=== PATIENT | female | born 1990 | race Caucasian/White ===

== ENCOUNTER → 2023-10-20 16:46 | Outpatient (REF) | payer BC, SELFPAY ==
[2023-10-20 18:11] LABS: Erythrocyte Sed Rate 6 mm/hour (0-20)
[2023-10-23 19:32] LABS: HLA-B27 Negative (Negative)
== END ==
LOC: REG 16:46
PROVIDERS: ATTENDING PHYSICIAN Internal Medicine Rheumatology; FAMILY PHYSICIAN Internal Medicine
DX: M46.96 Unspecified inflammatory spondylopathy, lumbar region (principal)
CPT/HCPCS: 36415; 72202; 85652; 86140; 86812

== ENCOUNTER → 2024-03-01 07:46 | Outpatient (REF) | payer BC, SELFPAY | LOC: EMG 07:46 | PROVIDERS: ATTENDING PHYSICIAN Nurse Practitioner; FAMILY PHYSICIAN Internal Medicine | DX: M79.662 Pain in left lower leg (principal); G90.522 Complex regional pain syndrome I of left lower limb; R20.2 Paresthesia of skin | CPT/HCPCS: 95886; 95910 ==

== ENCOUNTER 2024-08-04 01:18 | Emergency (ER) | payer BC, SELFPAY ==
[2024-08-04 01:20] VITALS: BP 136/88
[2024-08-04 01:34] VITALS: BP 112/84
[2024-08-04 01:35] VITALS: BMI 27.9
[2024-08-04 02:00] VITALS: BP 111/76
[2024-08-04] MEDS: DECADRON 10 MG PO (02:00)
--- NOTE | 2024-08-04 02:37 | ED.GENMED ---
History of Present Illness
General
Chief Complaint: Allergic Reaction
Source: patient and family
Exam Limitations: none
Time Seen by Provider: 08/04/24 01:44
Nursing documentation reviewed up to this point in time: agreed with
History of Present Illness
History of Present Illness:
Patient who has had cold-like symptoms, consisting of sore throat and intermittent cough, over the past 2 days, presents to ED secondary to sudden onset of facial flushing, swelling, and redness noted over upper chest, while she was brushing her
teeth, shortly prior to arrival. Approximately 10 minutes prior to onset of her symptoms, patient reports taking NyQuil along with her nighttime medications. Since onset of symptoms, patient has noted improvement of symptoms. Patient, at the time
of evaluation ED, states that most of but this has resolved. Patient is still complaining of mild facial swelling sensation. Denies shortness of breath. Denies chest pain. Denies dizziness. Denies diaphoresis. Denies throat swelling sensation.
Denies change in voice. Denies previous history of similar symptoms.
Review of Systems
Review of Systems
Allergies reviewed?: Yes
All Other Systems: ROS reviewed and negative except as documented in HPI and ROS
Constitutional: Reports no symptoms
EENT: Reports no symptoms
Respiratory: Reports no symptoms
Cardiac: Reports no symptoms
ABD/GI: Reports no symptoms
Musculoskeletal: Reports no symptoms
Skin: Reports other (facial swelling/redness)
Neurological: Reports no symptoms
Phy Exam
Physical Exam
Physical Exam:
Physical Exam
General: no apparent distress, not acutely ill. afebrile
Head: nc/at. eomi
Neck: supple. no meningeal signs. normal posterior pharynx
Heart: s1/s2 regular rate and rhythm, no murmur. equal radial pulses.
Lungs: no acute respiratory distress. clear bilaterally
Abdomen: normal bowel sounds. not tender.
Neuro: alert and oriented x 3. no focal neurological deficits
Skin: no rash
Psychiatric: well kept. interactive and cooperative
Extremities: no edema. no calf tenderness.
Course
Orders/Labs/Results
Orders:
Orders
08/04/24 01:55
Dexamethasone Pf [Decadron] 10 mg PO NOW STA
08/04/24 03:06
Diphenhydramine [Benadryl] 25 mg PO NOW STA
08/04/24 03:07
Diphenhydramine [Benadryl] 25 mg .ROUTE .STK-MED ONE
Vital Signs
Initial and Last Documented VS:
Initial Vital Signs
Temp Pulse Resp BP Pulse Ox
98.2 F 90 24 136/88 100
08/04/24 01:20 08/04/24 01:20 08/04/24 01:20 08/04/24 01:20 08/04/24 01:20
Last Documented Vital Signs
Temp Pulse Resp BP Pulse Ox
98.2 F 82 20 111/76 98
08/04/24 01:20 08/04/24 02:45 08/04/24 01:29 08/04/24 02:00 08/04/24 02:45
MDM/Problems Addressed
MDM/Problems Addressed:
History and exam consistent with likely acute allergic reaction, likely possible to reaction between NyQuil and her nighttime medications. Fortunately, patient's have started to improve spontaneously without treatment. Patient will be given 1 dose
of Decadron and observed further.
*Critical Care Note
Total Time (30-74mins, 75-104mins- exclusive of procedures): Not Applicable
ED Attending Note
-
Portions of this chart may have been created with voice recognition software.� Occasional wrong word or��sound alike� substitutions may have occurred due to the inherent limitations of voice recognition software.
Discharge Plan
Departure
Patient Disposition: Home (Routine Discharge)
Date of Disposition: 08/04/24
Time of Disposition: 02:56
Patient with high blood pressure during this ER visit?: Yes
Condition: Good
Discharge Problem:
Allergic reaction
Instructions: Allergic reaction - ED discharge instructions
Prescriptions:
No Action
bupropion HCl 150 mg Tablet Sustained-Release 12 Hr
150 mg PO DAILY
clonazepam 0.5 mg Tablet
0.5 mg PO HS PRN (Reason: anxiety)
montelukast 10 mg Tablet
10 mg PO DAILY
ondansetron 4 mg Tablet,Disintegrating
4 mg PO Q6H PRN (Reason: nausea)
levocetirizine 5 mg Tablet
5 mg PO DAILY
cholecalciferol (vitamin D3) [Vitamin D3] 50 mcg (2,000 unit) Tablet
50 mcg PO DAILY
dexlansoprazole 60 mg Capsule,Biphase Delayed Releas
60 mg PO DAILY
Aimovig Autoinjector 140 mg/mL Auto-Injector
140 mg SC QMONTH
Referrals:
Odell Stewart MD [Family Provider] -
Activity Restrictions/Additional Instructions:
As discussed, please follow-up with your primary care physician and/or crm marketing specialist for reevaluation.
Interventions
Interventions:
*Risk Screen - Suicide Last Done: 08/04/24 01:35
*General Assessment Last Done: 08/04/24 01:20
*Neglect/Abuse Screening Last Done: 08/04/24 01:20
ED- Fall Risk Assessment Last Done: 08/04/24 01:35
*ED COVID-19 Vaccine History Last Done: 08/04/24 01:20
*Nursing Disposition Last Done: 08/04/24 03:05
ED- Cardiac Assessment Last Done: 08/04/24 01:35
ED- Pulmonary Assessment Last Done: 08/04/24 01:35
ED-Skin Assessment Last Done: 08/04/24 01:35
Discharge Date and Time
Discharge Date/Time: 08/04/24 03:15
Print Language: NEPALI
[2024-08-04] MEDS: BENADRYL 25 MG PO (03:08)
== END 2024-08-04 03:15 | disposition home or self-care (01) ==
LOC: EMR 01:18
PROVIDERS: EMERGENCY PHYSICIAN Emergency Medicine; FAMILY PHYSICIAN Internal Medicine
DX: R22.0 Localized swelling, mass and lump, head (principal); T50.905A Adverse effect of unspecified drugs, medicaments and biological substances, initial encounter
CPT/HCPCS: 99283